=== PATIENT | male | born 2000 | race Caucasian/White ===

== ENCOUNTER 2022-09-04 13:30 | Emergency (ER) | payer SELFPAY ==
[2022-09-04 13:40] VITALS: BP 143/85; PULSE 67; RESP 16; TEMP 36.8; O2SAT 97; BMI 30.3
--- NOTE | 2022-09-04 13:46 | ED_ITS ---
HPI - Nausea/Vomiting/Diarrhea General: Chief complaint: Nausea/Vomiting/Diarrhea Stated complaint: flu like symptoms Time Seen by Provider: 09/04/22 13:43 Source: patient Mode of arrival: ambulatory History of Present Illness: 22-year-old male presents emergency room with persistent nausea vomiting again this morning. No hematochezia melena hematemesis cough nemesis few loose stools slight nonproductive cough no anosmia subjective fever. No fever on arrival here. No chronic respiratory major underlying right medical problems. MD elicited complaint: nausea and vomiting Onset (ago): hour(s) Associated nausea: Yes Associated abdominal pain: Yes Location of pain: Diffuse Severity: moderate Quality: cramping Exacerbating factors: none Relieving factors: none Associated symtoms: Reports nausea; Denies altered mental status, anxiety, bloating, change in vision, chest pain, cough, diaphoresis, decreased urine output, dizziness, dysuria, epistaxis, fatigue, fecal incontinence, fevers/chills, headache(s), anorexia, malaise, myalgias, numbness, palpitations, rash, short of breath, syncope, tenesmus, tinnitus or weakness Review of Systems Const: Denies: fatigue, malaise or diaphoresis Eyes: Denies: change in vision ENMT: Denies: tinnitus or epistaxis Card: Denies: chest pain, palpitations or syncope Resp: Denies: dyspnea, productive cough or non-productive cough GI: Reports: nausea; Denies: bloating or fecal incontinence : Denies: dysuria Skin/Breast: Denies: rash or pruritus Neuro: Denies: headache(s) or dizziness Psych: Denies: anxiety Physical Exam Const: EXAM LIMITATIONS: no altered mental status GENERAL APPEARANCE: cooperative and comfortable ORIENTATION/CONSCIOUSNESS: Yes awake, Yes oriented to person, Yes oriented to place and Yes oriented to time HENMT: COMMON NORMALS: normocephalic, atraumatic and hearing grossly normal bilaterally HEAD & SCALP: normocephalic and atraumatic Resp: COMMON NORMALS: normal respiratory effort, No retractions, No use of accessory muscles and clear to auscultation bilaterally AUSCULTATION: clear to auscultation bilaterally Cardio: COMMON NORMALS: regular rate, regular rhythm and No murmurs present (Cardio) RATE: regular rate RHYTHM: regular rhythm GI: COMMON NORMALS: Soft to palpation and No hepatosplenomegaly present AUSCULTATION: Yes normoactive bowel sounds PALPATION: Yes Soft to palpation, No Tenderness to palpation present (GI), No Guarding due to palpation present (GI) and Yes No hepatosplenomegaly present Extremity: COMMON NORMALS: normal to inspection, capillary refill normal, no clubbing, cyanosis or edema, no calf tenderness and no pedal edema Neuro: SENSORIUM/ORIENTATION: Yes oriented to person, Yes oriented to place and Yes oriented to time Skin: COMMON NORMALS: no rashes or lesions noted GENERAL SKIN EXAM: no rashes or lesions noted Course Vital Signs: Vital signs: Vital Signs Temperature 98.2 F 09/04/22 13:40 Pulse Rate 78 09/04/22 16:28 Respiratory Rate 16 09/04/22 13:40 Blood Pressure 142/86 09/04/22 16:28 Pulse Oximetry 96 09/04/22 16:28 Oxygen Delivery Me thod Room Air 09/04/22 16:16 MDM - Nausea/Vomiting/Diarrhea Medical Decision Making On examLabs imaging reviewed. No significant findings. Patient is better with fluids relatively benign. Gastroenteritis discharged home with antiemetics clinical diet advance 24 to 48 hours return if is further problems Medical Records I reviewed the patient's medical records. Lab Data I reviewed the patient's lab results. 09/04/22 14:10 09/04/22 14:10 Laboratory Results WBC 9.3 10^3/uL (4.0-10.0) 09/04/22 14:10 RBC 5.40 10^6/uL (4.1-5.3) H 09/04/22 14:10 Hgb 15.6 g/dL (11.7-16.6) 09/04/22 14:10 Hct 45.1 % (42.0-52.0) 09/04/22 14:10 MCV 83.5 fl (80-94) 09/04/22 14:10 MCH 28.9 pg (28.0-34.0) 09/04/22 14:10 MCHC 34.6 g/dL (30.0-36.0) 09/04/22 14:10 RDW 12.4 % (12.1-15.1) 09/04/22 14:10 Plt Count 230 10^3/cmm (130-400) 09/04/22 14:10 MPV 10.5 fL (7.4-10.4) H 09/04/22 14:10 Neut % (Auto) 56.6 % 09/04/22 14:10 Lymph % (Auto) 34.9 % 09/04/22 14:10 [place] % (Auto) 7.1 % 09/04/22 14:10 Eos % (Auto) 0.9 % 09/04/22 14:10 Baso % (Auto) 0.3 % 09/04/22 14:10 Neut # (Auto) 5.23 10^3/uL (1.8-7.7) 09/04/22 14:10 Lymph # (Auto) 3.2 10^3/uL (0.8-4.8) 09/04/22 14:10 [place] # (Auto) 0.7 10^3/uL (0.2-0.9) 09/04/22 14:10 Eos # (Auto) 0.1 10^3/uL (0.0-0.8) 09/04/22 14:10 Baso # (Auto) 0.0 10^3/uL (0.0-0.1) 09/04/22 14:10 Nucleated RBC % (auto) 0 % 09/04/22 14:10 Nucleated RBCs # 0.0 /100WBC 09/04/22 14:10 Sodium 140 mmol/L (136-145) 09/04/22 14:10 Potassium 4.0 mmol/L (3.5-5.1) 09/04/22 14:10 Chloride 103 mmol/L (98-107) 09/04/22 14:10 Carbon Dioxide 26 mmol/L (22-29) 09/04/22 14:10 Anion Gap 15.0 (5-19) 09/04/22 14:10 BUN 9 mg/dL (6-20) 09/04/22 14:10 Creatinine 0.7 mg/dL (0.7-1.2) 09/04/22 14:10 GFR Calculation 141.0 mL/min (90-130) H 09/04/22 14:10 Glucose 95 mg/dL (65-115) 09/04/22 14:10 Calculated Osmolality 288 mOsm/kg (285-295) 09/04/22 14:10 Lactic Acid 0.8 mmol/L (0.5-2.2) 09/04/22 15:33 Calcium 9.8 mg/dL (8.5-10.5) 09/04/22 14:10 Total Bilirubin 1.1 mg/dL (0.15-1.2) 09/04/22 14:10 AST 16 U/L (0-40) 09/04/22 14:10 ALT 24 U/L (0-41) 09/04/22 14:10 Alkaline Phosphatase 88 U/L (40-130) 09/04/22 14:10 Total Protein 7.9 g/dL (6.6-8.7) 09/04/22 14:10 Albumin 4.8 g/dL (3.5-5.2) 09/04/22 14:10 Globulin 3.1 g/dL (1.3-4.6) 09/04/22 14:10 Urine Color Straw (Yellow) 09/04/22 15:05 Urine Appearance Clear (CLEAR) 09/04/22 15:05 Urine pH 6.5 (5-7) 09/04/22 15:05 Ur Specific [place] 1.010 (1.005-1.030) 09/04/22 15:05 Urine Protein Neg (Negative) 09/04/22 15:05 Urine Glucose (UA) Norm (Normal) 09/04/22 15:05 Urine Ketones Negative (Negative) 09/04/22 15:05 Urine Blood Neg (Negative) 09/04/22 15:05 Urine Nitrate Negative (Negative) 09/04/22 15:05 Urine Bilirubin Neg (Negative) 09/04/22 15:05 Urine Urobilinogen Norm mg/dL (Negative) 09/04/22 15:05 Ur Leukocyte Esterase Negative (Negative) 09/04/22 15:05 Discharge Plan Discharge Patient Disposition: Home Clinical Impression: Gastroenteritis Condition: Stable Prescriptions: New ondansetron HCl 4 mg tablet 4 mg PO Q6H PRN (Reason: nausea and vomiting) Qty: 20 0RF Discharge Orders: Discharge ED (Routine); Ordered 09/04/22 Ordered By: Jerry Tanner Discharge Diet: Usual diet Discharge Activity: Resume usual activity Patient Instructions: Opioid Safety, Pain Management Activity Restrictions/Additional Instructions: Your evaluated today for persistent nausea and vomiting laboratory tests are normal exam did not show significant intra-abdominal signs. We will discharge you home recommend clear liquid diet and use ondansetron as needed advance diet as tolerated in 24 to 48 hours Stand Alone Forms: Work/School Release Coding Level of Care Code ED [employer] for Yovanny Coe
[2022-09-04] MEDS: sodium chloride 0.9% 1,000 ML 999 ML IV ×2 (14:08→15:05)
[2022-09-04] MEDS: ondansetron 2 mg/ML SDV 2 mL 4 MG IVP (14:08)
[2022-09-04 14:29] LABS: Basophils % 0.3 %; Eosinophils # 0.1 10^3/uL (0.0-0.8); Eosinophils % 0.9 %; Hematocrit 45.1 % (42.0-52.0); Hemoglobin 15.6 g/dL (11.7-16.6); Lymphocytes # 3.2 10^3/uL (0.8-4.8); Lymphocytes % 34.9 %; Mean Corpuscular HGB Conc 34.6 g/dL (30.0-36.0); Mean Corpuscular Hemoglobin 28.9 pg (28.0-34.0); Mean Corpuscular Volume 83.5 fl (80-94); Mean Platelet Volume 10.5 fL (7.4-10.4); Monocytes # 0.7 10^3/uL (0.2-0.9); Monocytes % 7.1 %; Neutrophils # 5.23 10^3/uL (1.8-7.7); Neutrophils % 56.6 %; Nucleated Red Blood Cells % 0 %; Platelet Count 230 10^3/cmm (130-400); Red Cell Distribution Width 12.4 % (12.1-15.1); White Blood Count 9.3 10^3/uL (4.0-10.0)
[2022-09-04 14:37] VITALS: BP 129/73; PULSE 58; O2SAT 96
[2022-09-04 14:54] LABS: Alanine Aminotransferase 24 U/L (0-41); Albumin Level 4.8 g/dL (3.5-5.2); Alkaline Phosphatase 88 U/L (40-130); Aspartate Amino Transferase 16 U/L (0-40); Blood Urea Nitrogen 9 mg/dL (6-20); Calcium 9.8 mg/dL (8.5-10.5); Carbon Dioxide 26 mmol/L (22-29); Chloride 103 mmol/L (98-107); Globulin 3.1 g/dL (1.3-4.6); Glucose 95 mg/dL (65-115); Osmolality Calculated 288 mOsm/kg (285-295); Sodium 140 mmol/L (136-145); Total Bilirubin 1.1 mg/dL (0.15-1.2); Total Protein 7.9 g/dL (6.6-8.7)
[2022-09-04 15:27] LABS: Add Urine Microscopic? NO; Charge for UA Resulting for Rev
[2022-09-04 15:42] LABS: Urine Appearance Clear (CLEAR); Urine Color Straw (Yellow)
[2022-09-04 15:43] LABS: Bilirubin Urine Neg (Negative); Blood Urine Neg (Negative); Glucose Urine UA Norm (Normal); Ketones Urine Negative (Negative); Leukocyte Esterase Urine Negative (Negative); Nitrate Urine Negative (Negative); Protein Urine Neg (Negative); Urobilinogen Urine Norm (Negative); pH Urine 6.5 (5-7)
[2022-09-04 15:55] LABS: Lactic Sepsis W/Reflex 0.8 mmol/L (0.5-2.2)
[2022-09-04 16:16] VITALS: BP 133/94; PULSE 58; O2SAT 96
[2022-09-04 16:28] VITALS: BP 142/86; PULSE 78; O2SAT 96
== END 2022-09-04 16:30 | disposition home or self-care (01) ==
PROVIDERS: Emergency Provider Family Medicine
DX: K52.9 Noninfective gastroenteritis and colitis, unspecified (principal)
CPT/HCPCS: 36415; 80053; 81003; 83605; 85025; 96361; 96374; 99284; J2405; J7030